=== PATIENT | male | born 1975 | race Caucasian/White ===

== ENCOUNTER → 2018-01-17 | Outpatient (CLI) | payer OTHER | END | disposition home or self-care (01) | LOC: RAD 06:47 | PROVIDERS: ATTEND Nurse Practitioner Primary Care | DX: M51.34 Other intervertebral disc degeneration, thoracic region (principal); M48.03 Spinal stenosis, cervicothoracic region | CPT/HCPCS: 72141; 72146 ==

== ENCOUNTER → 2018-03-11 | Outpatient (CLI) | payer OTHER ==
[2018-03-11 16:34] LABS: MICROSCOPIC NOT IND
[2018-03-11 16:38] LABS: BASOPHILS # (AUTO) 0.03 x10^3/uL (0-0.1); BASOPHILS % (AUTO) 1 % (0-1); EOSINOPHILS # (AUTO) 0.05 x10^3/uL (0-0.4); EOSINOPHILS % (AUTO) 1 % (1-7); LYMPHOCYTES # (AUTO) 1.25 x10^3/uL (1-3.4); LYMPHOCYTES % (AUTO) 21 % (22-44); MD NO; MEAN CORPUSCULAR HEMOGLOBIN 31.8 pg (27.5-34.5); MEAN CORPUSCULAR HGB CONC 34.6 g/dL (33.2-36.2); MEAN CORPUSCULAR VOLUME 91.9 fL (81-97); MEAN PLATELET VOLUME 7.8 fL (7.4-10.4); MONOCYTES # (AUTO) 0.53 x10^3/uL (0.2-0.8); MONOCYTES % (AUTO) 9 % (2-9); NEUTROPHILS # (AUTO) 3.98 x10^3/uL (1.8-6.8); NEUTROPHILS % (AUTO) 68 % (42-75); PLATELET COUNT 211 x10^3/uL (130-400); RED BLOOD COUNT 4.77 x10^6/uL (4.38-5.82); RED CELL DISTRIBUTION WIDTH 13.4 % (9.4-14.8)
[2018-03-11 16:43] LABS: INTERNATIONAL NORMALIZED RATIO 1.04 (0.93-1.1); PROTHROMBIN TIME 10.7 Seconds (9.6-11.5)
[2018-03-11 16:44] LABS: ANION GAP 5 mmol/L (5-15); CALCIUM 8.9 mg/dL (8.5-10.1); CHLORIDE 112 mmol/L (98-107); CREATININE 1.01 mg/dL (0.7-1.3); CULTURE INDICATED? NO
== END | disposition home or self-care (01) ==
LOC: RAD 15:55
PROVIDERS: ATTEND Neurological Surgery
DX: Z01.818 Encounter for other preprocedural examination (principal); M50.30 Other cervical disc degeneration, unspecified cervical region; M48.02 Spinal stenosis, cervical region
CPT/HCPCS: 36415; 71046; 80048; 81003; 85025; 85610; 85730

== ENCOUNTER → 2018-03-12 | Outpatient (CLI) | payer OTHER | END | disposition home or self-care (01) | LOC: STAR 14:15 | PROVIDERS: ATTEND Neurological Surgery | DX: Z01.818 Encounter for other preprocedural examination (principal); M50.30 Other cervical disc degeneration, unspecified cervical region; M48.02 Spinal stenosis, cervical region | CPT/HCPCS: 93005 ==